=== PATIENT | male | born 1970 | race Two or more races ===

== ENCOUNTER 2025-06-07 11:09 | Emergency (ER) | payer OTHER ==
[~2025-06-07] VITALS: Ht 172.7 cm; Wt 68.9 kg
[2025-06-07] MEDS ORDERED: KETOROLAC TROMETHAMINE 60 MG VIAL IM ONE ×2 (12:00→12:08)
[2025-06-07] MEDS ORDERED: ORPHENADRINE CITRATE 30 MG/ML AMPUL IM ONE (12:00)
[2025-06-07] MEDS ORDERED: ORPHENADRINE CITRATE 30 MG/ML AMPUL ONE (12:08)
[2025-06-07] MEDS ORDERED: DICLOFENAC SODI75 MG PO (15:51)
[2025-06-07] MEDS ORDERED: NORFLEX100MG PO (15:51)
== END 2025-06-07 15:57 | disposition home or self-care (01) ==
LOC: ER 11:58
DX: M62.838 Other muscle spasm (principal)
CPT/HCPCS: 72040; 96372; 99283; J1885; J2360